=== PATIENT | male | born 1935 | race Caucasian/White ===

== ENCOUNTER 2018-01-01 09:04 | Emergency (ER) | payer MEDICARE, OTHER ==
--- NOTE | 2018-01-01 10:38 | EDM.PDOC ---
ED HPI GENERAL MEDICAL PROBLEM - General Chief Complaint: Respiratory Problem Stated Complaint: SOB Time Seen by Provider: 01/01/18 10:28 Source of Information: Reports: Patient History Limitations: Reports: No Limitations - History of Present Illness INITIAL COMMENTS - FREE TEXT/NARRATIVE: 82-year-old male presents for evaluation and treatment of shortness of breath. Patient reports symptoms have been going on for some time but the last week has been worse. Has a history of congestive heart failure. Reports he has been experiencing shortness breath at all times, worse on exertion. He has not been checking his weight at all. States that the swelling in his legs actually looks improved compared to normal. He denies any chest pain, cough, fevers or orthopnea. Patient is on Coumadin for A. fib. He is also 40 mg of Lasix daily. He has been taking this as prescribed. He is supposed to have his INR checked today. [facility]ides between [facility]. He sees his primary care provider and nurse aide evaluator in [place]. - Related Data Allergies Allergy/AdvReac Type Severity Reaction Status Date / Time No Known Allergies Allergy Verified 01/01/18 09:20 Home Meds: Home Meds Carvedilol [Coreg] 25 mg PO BID 10/10/13 [History] Losartan Potassium 100 mg PO DAILY 10/10/13 [History] Simvastatin [Zocor] 40 mg PO DAILY 10/10/13 [History] Warfarin [Coumadin] 5 mg PO DAILY 10/10/13 [History] Furosemide 40 mg PO DAILY 01/01/18 [History] Furosemide [Lasix] 20 mg PO DAILY #10 tab 01/01/18 [Rx] Psyllium Husk [Metamucil] 1 gm PO DAILY 01/01/18 [History] Past Medical History HEENT History: Reports: Hard of Hearing Cardiovascular History: Reports: Afib, Hypertension Social & Family History - Tobacco Use Smoking Status *Q: Never Smoker - Recreational Drug Use Recreational Drug Use: No ED ROS GENERAL - Review of Systems Review Of Systems: See Below Constitutional: Denies: Fever, Weight Gain (unsure, has not been checking his weight) Respiratory: Reports: Shortness of Breath. Denies: Cough Cardiovascular: Reports: Dyspnea on Exertion. Denies: Chest Pain, Edema, Lightheadedness, Orthopnea, Syncope GI/Abdominal: Denies: Abdominal Pain, Nausea, Vomiting ED EXAM, GENERAL - Physical Exam Exam: See Below Exam Limited By: No Limitations General Appearance: Alert, WD/WN, No Apparent Distress Eye Exam: Bilateral Eye: Normal Inspection Ears: Normal External Exam Nose: Normal Inspection Throat/Mouth: Normal Inspection, Normal Lips, Normal Voice, No Airway Compromise Respiratory/Chest: No Respiratory Distress, Lungs Clear, Normal Breath Sounds. No: Crackles Cardiovascular: Normal Peripheral Pulses, Regular Rate, Rhythm, No Murmur Extremities: Normal Inspection, Pedal Edema (trace non pitting) Neurological: Alert, Oriented, Normal Cognition Psychiatric: Normal Affect, Normal Mood Skin Exam: Warm, Dry, Normal Color EKG INTERPRETATION EKG Date: 01/01/18 Time: 09:50 Rhythm: A-Fib Rate (Beats/Min): 82 (rate of 66-100) [place]: Normal P-Wave: Present QRS: RBBB (incomplete) ST-T: Normal QT: Normal EKG Interpretation Comments: a.fib with a rate of 66 to 100 bpm. incomplete RBBB. Reviewed by myself and Dr. Tolbert. Course - Vital Signs Last Recorded V/S: Last Vital Signs Temp 97.7 F 01/01/18 09:16 Pulse 94 01/01/18 09:16 Resp 17 01/01/18 09:16 BP 143/87 H 01/01/18 09:16 Pulse Ox 93 L 01/01/18 09:16 - Orders/Labs/Meds Orders: Active Orders 24 hr Category Date Time Status Cardiac Monitoring [RC] . DIRECTED Care 01/01/18 10:37 Active EKG Documentation Completion [RC] ASDIRECTED Care 01/01/18 09:33 Active Chest 2V [CR] Stat Exams 01/01/18 08:14 Taken UA W/MICROSCOPIC [URIN] Stat Lab 01/01/18 11:25 Ordered EKG 12 Lead [EK] Stat Ther 01/01/18 09:33 Ordered Labs: Laboratory Tests 01/01/18 01/01/18 01/01/18 Range/Units 09:40 09:40 09:40 WBC 4.09 L (4.23-9.07) K/mm3 RBC 3.96 L (4.63-6.08) M/mm3 Hgb 13.0 L (13.7-17.5) gm/L Hct 39.6 L (40.1-51.0) % MCV 100.0 H (79.0-92.2) fl MCH 32.8 H (25.7-32.2) pg MCHC 32.8 (32.2-35.5) g/dl RDW Std Deviation 49.8 H (35.1-43.9) fL Plt Count 116 L (163-337) K/mm3 MPV 9.2 L (9.4-12.3) fl Neut % (Auto) 69.2 H (34.0-67.9) % Lymph % (Auto) 18.1 L (21.8-53.1) % [place] % (Auto) 10.8 (5.3-12.2) % Eos % (Auto) 1.7 (0.8-7.0) Baso % (Auto) 0.2 (0.1-1.2) % Neut # (Auto) 2.83 (1.78-5.38) K/mm3 Lymph # (Auto) 0.74 L (1.32-3.57) K/mm3 [place] # (Auto) 0.44 (0.30-0.82) K/mm3 Eos # (Auto) 0.07 (0.04-0.54) K/mm3 Baso # (Auto) 0.01 (0.01-0.08) K/mm3 PT (9.5-12.1) SECONDS INR APTT 34 H (24-31) SECONDS D-Dimer, Quantitative (0.19-0.50) mg/L Sodium 143 (136-145) mEq/L Potassium 3.9 (3.5-5.1) mEq/L Chloride 106 (98-107) mEq/L Carbon Dioxide 29 (21-32) mEq/L Anion Gap 11.9 (5-15) BUN 23 H (7-18) mg/dL Creatinine 1.1 (0.7-1.3) mg/dL Est Cr Clr Drug Dosing 56.09 mL/min Estimated GFR (MDRD) > 60 (>60) mL/min BUN/Creatinine Ratio 20.9 H (14-18) Glucose 122 H (83-115) mg/dL Calcium 8.9 (8.5-10.1) mg/dL Total Bilirubin 0.8 (0.2-1.0) mg/dL AST 32 (15-37) U/L ALT 39 (16-63) U/L Alkaline Phosphatase 64 (46-116) U/L Troponin I < 0.017 (0.00-0.056) ng/mL NT-Pro-B Natriuret Pep (0-450) pg/mL Total Protein 6.8 (6.4-8.2) g/dl Albumin 3.7 (3.4-5.0) g/dl Globulin 3.1 gm/dL Albumin/Globulin Ratio 1.2 (1-2) Urine Color (Yellow) Urine Appearance (Clear) Urine pH (5.0-8.0) Ur Specific [place] (1.005-1.030) Urine Protein (Negative) Urine Glucose (UA) (Negative) Urine Ketones (Negative) Urine Occult Blood (Negative) Urine Nitrite (Negative) Urine Bilirubin (Negative) Urine Urobilinogen (0.2-1.0) Ur Leukocyte Esterase (Negative) Urine RBC (0-5) /hpf Urine WBC (0-5) /hpf Ur Epithelial Cells (0-5) /hpf Urine Bacteria (FEW) /hpf Urine Mucus (FEW) /hpf 01/01/18 01/01/18 01/01/18 Range/Units 09:40 09:40 09:40 WBC (4.23-9.07) K/mm3 RBC (4.63-6.08) M/mm3 Hgb (13.7-17.5) gm/L Hct (40.1-51.0) % MCV (79.0-92.2) fl MCH (25.7-32.2) pg MCHC (32.2-35.5) g/dl RDW Std Deviation (35.1-43.9) fL Plt Count (163-337) K/mm3 MPV (9.4-12.3) fl Neut % (Auto) (34.0-67.9) % Lymph % (Auto) (21.8-53.1) % [place] % (Auto) (5.3-12.2) % Eos % (Auto) (0.8-7.0) Baso % (Auto) (0.1-1.2) % Neut # (Auto) (1.78-5.38) K/mm3 Lymph # (Auto) (1.32-3.57) K/mm3 [place] # (Auto) (0.30-0.82) K/mm3 Eos # (Auto) (0.04-0.54) K/mm3 Baso # (Auto) (0.01-0.08) K/mm3 PT 20.7 H (9.5-12.1) SECONDS INR 1.92 APTT (24-31) SECONDS D-Dimer, Quantitative 0.25 (0.19-0.50) mg/L Sodium (136-145) mEq/L Potassium (3.5-5.1) mEq/L Chloride (98-107) mEq/L Carbon Dioxide (21-32) mEq/L Anion Gap (5-15) BUN (7-18) mg/dL Creatinine (0.7-1.3) mg/dL Est Cr Clr Drug Dosing mL/min Estimated GFR (MDRD) (>60) mL/min BUN/Creatinine Ratio (14-18) Glucose (83-115) mg/dL Calcium (8.5-10.1) mg/dL Total Bilirubin (0.2-1.0) mg/dL AST (15-37) U/L ALT (16-63) U/L Alkaline Phosphatase (46-116) U/L Troponin I (0.00-0.056) ng/mL NT-Pro-B Natriuret Pep 1150 H (0-450) pg/mL Total Protein (6.4-8.2) g/dl Albumin (3.4-5.0) g/dl Globulin gm/dL Albumin/Globulin Ratio (1-2) Urine Color (Yellow) Urine Appearance (Clear) Urine pH (5.0-8.0) Ur Specific [place] (1.005-1.030) Urine Protein (Negative) Urine Glucose (UA) (Negative) Urine Ketones (Negative) Urine Occult Blood (Negative) Urine Nitrite (Negative) Urine Bilirubin (Negative) Urine Urobilinogen (0.2-1.0) Ur Leukocyte Esterase (Negative) Urine RBC (0-5) /hpf Urine WBC (0-5) /hpf Ur Epithelial Cells (0-5) /hpf Urine Bacteria (FEW) /hpf Urine Mucus (FEW) /hpf 01/01/18 Range/Units 11:25 WBC (4.23-9.07) K/mm3 RBC (4.63-6.08) M/mm3 Hgb (13.7-17.5) gm/L Hct (40.1-51.0) % MCV (79.0-92.2) fl MCH (25.7-32.2) pg MCHC (32.2-35.5) g/dl RDW Std Deviation (35.1-43.9) fL Plt Count (163-337) K/mm3 MPV (9.4-12.3) fl Neut % (Auto) (34.0-67.9) % Lymph % (Auto) (21.8-53.1) % [place] % (Auto) (5.3-12.2) % Eos % (Auto) (0.8-7.0) Baso % (Auto) (0.1-1.2) % Neut # (Auto) (1.78-5.38) K/mm3 Lymph # (Auto) (1.32-3.57) K/mm3 [place] # (Auto) (0.30-0.82) K/mm3 Eos # (Auto) (0.04-0.54) K/mm3 Baso # (Auto) (0.01-0.08) K/mm3 PT (9.5-12.1) SECONDS INR APTT (24-31) SECONDS D-Dimer, Quantitative (0.19-0.50) mg/L Sodium (136-145) mEq/L Potassium (3.5-5.1) mEq/L Chloride (98-107) mEq/L Carbon Dioxide (21-32) mEq/L Anion Gap (5-15) BUN (7-18) mg/dL Creatinine (0.7-1.3) mg/dL Est Cr Clr Drug Dosing mL/min Estimated GFR (MDRD) (>60) mL/min BUN/Creatinine Ratio (14-18) Glucose (83-115) mg/dL Calcium (8.5-10.1) mg/dL Total Bilirubin (0.2-1.0) mg/dL AST (15-37) U/L ALT (16-63) U/L Alkaline Phosphatase (46-116) U/L Troponin I (0.00-0.056) ng/mL NT-Pro-B Natriuret Pep (0-450) pg/mL Total Protein (6.4-8.2) g/dl Albumin (3.4-5.0) g/dl Globulin gm/dL Albumin/Globulin Ratio (1-2) Urine Color Yellow (Yellow) Urine Appearance Clear (Clear) Urine pH 7.0 (5.0-8.0) Ur Specific [place] 1.015 (1.005-1.030) Urine Protein Negative (Negative) Urine Glucose (UA) Negative (Negative) Urine Ketones Negative (Negative) Urine Occult Blood Negative (Negative) Urine Nitrite Negative (Negative) Urine Bilirubin Negative (Negative) Urine Urobilinogen 0.2 (0.2-1.0) Ur Leukocyte Esterase Negative (Negative) Urine RBC Not seen (0-5) /hpf Urine WBC Not seen (0-5) /hpf Ur Epithelial Cells 0-5 (0-5) /hpf Urine Bacteria Not seen (FEW) /hpf Urine Mucus Not seen (FEW) /hpf Meds: Medications Discontinued Medications Generic Name Dose Route Start Last Admin Trade Name Freq PRN Reason Stop Dose Admin Furosemide 40 mg 01/01/18 12:04 01/01/18 12:21 Lasix IVPUSH 01/01/18 12:05 40 mg NOW ONE Administration - Radiology Interpretation Free Text/Narrative:: Chest: Two views of the chest were obtained. Comparison: No prior chest x-ray. Heart is mildly enlarged. Tortuous thoracic aorta is seen. Pulmonary vessels are slightly congested. Lungs otherwise are clear. Bony structures are within normal limits for the patient's age. Impression: 1. Cardiomegaly and mild pulmonary vascular congestion. - Re-Assessments/Exams Free Text/Narrative Re-Assessment/Exam: 01/01/18 12:16 Review the labs, EKG and imaging with the patient. We'll give 40 of Lasix. We' ll attempt to do ambulatory pulse ox. He is in no obvious distress and is eating at this time. Plan is currently to increase his Lasix and have him follow -up with his nurse aide evaluator. He is planning on returning home to [place] tomorrow. 01/01/18 13:00 Patient did have slight increased work of breathing with ambulation. Pulse ox did drop into the upper 80s, low 90s while in room air with ambulatory pulse ox but he recovered nicely once he was seated. Plan will still be to treat him as an outpatient. We will increase his Lasix to 60 daily and I will have him follow-up with his primary. Discharge instructions as documented. Departure - Departure Time of Disposition: 13:00 Disposition: Home, Self-Care 01 Condition: Fair Clinical Impression: Heart failure - Discharge Information *PRESCRIPTION DRUG MONITORING PROGRAM REVIEWED*: No *COPY OF PRESCRIPTION DRUG MONITORING REPORT IN PATIENT [place]: No Prescriptions: Furosemide [Lasix] 20 mg PO DAILY #10 tab Instructions: Heart Failure, [id number] Referrals: PCP,Not In Area [Primary Care Provider] - Forms: ED Department Discharge Additional Instructions: Increase your Lasix from 40 mg to 60 mg. A prescription has been provided for you to have a 20 mg tab to take with your 40 mg. Start this tomorrow as you were given a dose of Lasix in the ED today. Follow-up with your primary care provider or nurse aide evaluator when you returned home to [place]. Follow-up with your Coumadin clinic for further management of your Coumadin. Your INR in the ER today was 1.92. Please return to the ER if your symptoms change or worsen. - My Orders Last 24 Hours: My Active Orders 01/01/18 08:14 Chest 2V [CR] Stat 01/01/18 09:33 EKG Documentation Completion [RC] ASDIRECTED EKG 12 Lead [EK] Stat 01/01/18 10:37 Cardiac Monitoring [RC] . DIRECTED 01/01/18 11:25 UA W/MICROSCOPIC [URIN] Stat - Assessment/Plan Last 24 Hours: My Active Orders 01/01/18 08:14 Chest 2V [CR] Stat 01/01/18 09:33 EKG Documentation Completion [RC] ASDIRECTED EKG 12 Lead [EK] Stat 01/01/18 10:37 Cardiac Monitoring [RC] . DIRECTED 01/01/18 11:25 UA W/MICROSCOPIC [URIN] Stat
[2018-01-01] MEDS ORDERED: Furosemide 40 MG/4 ML VIAL IVPUSH ONE (12:04)
--- NOTE | 2018-01-01 15:34 | CR ---
Chest: Two views of the chest were obtained. Comparison: No prior chest x-ray. Heart is mildly enlarged. Tortuous thoracic aorta is seen. Pulmonary vessels are slightly congested. Lungs otherwise are clear. Bony structures are within normal limits for the patient's age. Impression: 1. Cardiomegaly and mild pulmonary vascular congestion. Diagnostic code #3
== END 2018-01-01 13:18 | disposition home or self-care (01) ==
LOC: JD.ED 09:04
DX: I11.0 Hypertensive heart disease with heart failure (principal); I50.9 Heart failure, unspecified; I48.91 Unspecified atrial fibrillation; Z79.01 Long term (current) use of anticoagulants; Z79.899 Other long term (current) drug therapy
CPT/HCPCS: 36415; 71046; 80053; 81001; 83880; 84484; 85025; 85379; 85610; 85730; 93005; 96374; 99285; J1940; 93010; 99284